=== PATIENT | male | born 1980 ===

== ENCOUNTER 2021-04-29 08:50 | Day surgery (SDC) | payer OTHER ==
[~2021-04-29 08:50] MED LIST: CARDIZEM CD120 MG PO; ZYLOPRIM100 MG PO
== END 2021-04-29 15:00 | disposition home or self-care (01) ==
LOC: CIR.AMB 08:50
PROVIDERS: ATTEND Orthopaedic Surgery
DX: M77.01 Medial epicondylitis, right elbow (principal); Z20.822 Contact with and (suspected) exposure to COVID-19